=== PATIENT | female | born 1990 | race Caucasian/White ===

== ENCOUNTER 2020-09-04 12:16 | Emergency (ER) | payer BC, MEDICARE ==
[~2020-09-04 12:16] MED LIST: Cefdinir 300 MG Cap PO SCH; QUEtiapine 100 MG Tab PO SCH
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
[2020-09-04 14:01] LABS: ACETAMINOPHEN 0 ug/mL (10-30)
[2020-09-04] MEDS ORDERED: Cefdinir 300 MG Cap PO ONE ×2 (14:01→15:16)
[2020-09-04 14:09] LABS: CORONAVIRUS COVID-19 NAA NEGATIVE (NEGATIVE)
[2020-09-04 14:58] VITALS: BP 120/81; PULSE 107
[2020-09-04] MEDS ORDERED: QUEtiapine 100 MG Tab PO ONE (15:19)
== END 2020-09-04 15:50 | disposition other institution (70) ==
LOC: JD.ED 12:16
DX: S00.83XA Contusion of other part of head, initial encounter (principal); N30.01 Acute cystitis with hematuria; F43.9 Reaction to severe stress, unspecified; R79.89 Other specified abnormal findings of blood chemistry; Z20.822 Contact with and (suspected) exposure to COVID-19; Z72.0 Tobacco use; W22.01XA Walked into wall, initial encounter; Y92.009 Unspecified place in unspecified non-institutional (private) residence as the place of occurrence of the external cause
CPT/HCPCS: 0240U; 36415; 80053; 80143; 80179; 80306; 80307; 81001; 81025; 84443; 85007; 85027; 87086; 87088; 87186; 93005; 99284; A9270; 93010; 99285

== ENCOUNTER 2022-05-25 14:58 | Emergency (ER) | payer BC, MEDICARE ==
[2022-05-25] MEDS ORDERED: LORazepam 2 MG/ML SDV IVPUSH ONE (15:07)
[2022-05-25 15:16] VITALS: BP 136/112; PULSE 120
[2022-05-25 16:06] LABS: ESTIMATED GFR 68 mL/min (>60)
[2022-05-25 16:17] LABS: ACETAMINOPHEN 0 ug/mL (10-30)
== END 2022-05-25 20:15 | disposition home or self-care (01) ==
LOC: JD.ED 14:58
DX: F41.9 Anxiety disorder, unspecified (principal); Z79.899 Other long term (current) drug therapy
CPT/HCPCS: 36415; 80053; 80143; 80179; 80306; 80307; 81001; 81025; 84443; 85025; 96374; 99284; J2060

== ENCOUNTER 2022-07-27 11:12 | Emergency (ER) | payer BC, MEDICAID ==
[2022-07-27 13:46] VITALS: BP 112/74; PULSE 88
== END 2022-07-27 13:46 | disposition home or self-care (01) ==
LOC: JD.ED 11:12
DX: M25.572 Pain in left ankle and joints of left foot (principal); Z79.899 Other long term (current) drug therapy
CPT/HCPCS: 73610-26-LT; 73610-LT; 73630-26-LT; 73630-LT; 99283

== ENCOUNTER 2022-08-09 | Emergency (ER) | payer BC, MEDICAID ==
[2022-08-09 00:21] VITALS: BP 101/58; PULSE 103
[2022-08-09] MEDS ORDERED: Sodium Chloride 0.9% 1,000 ML IV ONE (00:52)
[2022-08-09 01:21] LABS: CORONAVIRUS COVID-19 NAA NEGATIVE (NEGATIVE)
[2022-08-09] MEDS ORDERED: cefTRIAXone 1 GM in Sodium Chloride 0.9% 100 ML IV ONE (03:21)
[2022-08-09] MEDS ORDERED: Pantoprazole 40 MG Tab.CR PO STA (05:31)
== END 2022-08-09 06:00 | disposition other institution (70) ==
LOC: JD.ED
DX: K29.51 Unspecified chronic gastritis with bleeding (principal); J02.0 Streptococcal pharyngitis; H65.02 Acute serous otitis media, left ear; D64.9 Anemia, unspecified; F17.210 Nicotine dependence, cigarettes, uncomplicated; Z79.899 Other long term (current) drug therapy; Z20.822 Contact with and (suspected) exposure to COVID-19
CPT/HCPCS: 0240U; 36415; 70450; 71045; 80053; 81001; 85014; 85018; 85025; 85610; 85730; 87651; 96361; 96365; 99284; A9270; J0696; J7030